=== PATIENT | female | born 1970 | race Caucasian/White ===

== ENCOUNTER 2021-08-03 10:42 | Observation (INO) | payer SELFPAY ==
[2021-08-03] MEDS ORDERED: Acetaminophen 650 MG Suppository PR PRN (11:02)
[2021-08-03] MEDS ORDERED: Acetaminophen 325 MG TAB PO PRN (11:02)
[2021-08-03 11:40] VITALS: BMI 26.0
[2021-08-03 12:55] LABS: Troponin I Less than 0.010 ng/mL (< 0.028)
[2021-08-03 13:22] LABS: Amphetamine Not Detected (NotDetected); Barbiturates Screen Not Detected (NotDetected); Benzodiazepine Screen Not Detected (NotDetected); Cocaine Metabolite Screen Not Detected (NotDetected); Methadone Not Detected (NotDetected); Methamphetamine Not Detected (NotDetected); Opiate Screen Detected (NotDetected); Oxycodone Screen Not Detected (NotDetected); Phencyclidine (PCP) Not Detected (NotDetected); THC/Cannabinoid Screen Not Detected (NotDetected); Tricyclic Screen Not Detected (NotDetected)
[2021-08-03 15:03] LABS: Troponin I Less than 0.010 ng/mL (< 0.028)
[2021-08-03] MEDS: Nicotine 14 MG PATCH TD SCH (17:21)
[2021-08-03 19:31] LABS: Hemoglobin A1c 5.2 % (4.0-6.0)
[2021-08-03] MEDS ORDERED: Cephalexin 500 MG CAP PO SCH (21:00)
[2021-08-03] MEDS ORDERED: Ibuprofen 400 MG TAB PO SCH (21:15)
[2021-08-03] MEDS ORDERED: Melatonin 3 MG TAB PO PRN (22:24)
[2021-08-03 23:10] LABS: SARS-CoV-2 PCR by NAA Not Detected (NotDetected)
[2021-08-03] MEDS: Nitroglycerin 2% Ointment 1 INCH/1 GM Packet TOP SCH (23:17)
[2021-08-04 05:27] LABS: #Basophils 0.1 10x3/uL (0.0-0.2); #Eosinphils 0.3 10x3/uL (0.0-0.5); #Monocytes 0.8 10x3/uL (0.0-1.1); #Neutrophils 6.4 10x3/uL (1.5-8.4); %Eosinophils 2.9 % (0.0-6.0); %Lymphocytes 21.5 % (18.0-47.0); %Monocytes 8.5 % (0.0-10.0); %Neutrophils 65.7 % (40.0-75.0); Hemoglobin 14.9 g/dL (12.0-15.5); Mean Corpuscular HGB CONC 34.2 g/dL (32.0-36.0); Mean Corpuscular Hemoglobin 30.3 pg (27.0-33.0); Mean Corpuscular Volume 88.8 fl (81.6-98.3); Mean Platelet Volume 10.6 fl (7.4-10.4); Platelet Count 268 10x3/uL (150-450); RBC Distribution Width 15.6 % (11.5-14.5); Red Blood Cell (RBC) Count 4.91 10x6/uL (3.90-5.03); White Blood Cell (WBC) Count 9.7 10x3/uL (3.5-10.5)
[2021-08-04 05:31] LABS: Anion Gap 15 mmol/L (10-20); BUN (Urea Nitrogen) 19 mg/dL (7.0-18.7); Calc. Creatinine Clearance 84 mL/min (70-130); Calcium 9.1 mg/dL (7.8-10.44); Carbon Dioxide 21 mmol/L (22-29); Cardiac Risk 2.5 (Less than 4.5); Chloride 107 mmol/L (98-107); Cholesterol 169 mg/dl (< 200 Desired); Glucose 109 mg/dL (70-105); HDL Cholesterol 67 mg/dL (>60 Neg Risk); LDL Cholesterol, Calculated 70 mg/dL; Potassium 3.7 mmol/L (3.5-5.1); Sodium 139 mmol/L (136-145); Triglycerides 158 mg/dL (Less than 150)
[2021-08-04] MEDS: Nitroglycerin 2% Ointment 1 INCH/1 GM Packet TOP SCH (06:41)
[2021-08-04 08:28] VITALS: BP 127/68; TEMP 97
[2021-08-04] MEDS ORDERED: Nitrofurantoin Monohyd/M-Cryst 100 MG CAP PO SCH (09:00)
[2021-08-04] MEDS ORDERED: Aspirin Chewable 81 MG TAB PO SCH (09:00)
[2021-08-04] MEDS: Nicotine 14 MG PATCH TD SCH (10:59)
== END 2021-08-04 11:05 | disposition left against medical advice (07) ==
LOC: CSHTELE 10:42
PROVIDERS: ADMIT Emergency Medicine; ATTEND Emergency Medicine
DX: R07.2 Precordial pain (principal); F17.210 Nicotine dependence, cigarettes, uncomplicated; N39.0 Urinary tract infection, site not specified; Z20.822 Contact with and (suspected) exposure to COVID-19
CPT/HCPCS: 36415; 80048; 80061; 80306; 83036; 85025; 93005; 93010; 93306; G0378; U0003; U0005